=== PATIENT | male | born 1995 | race Caucasian/White ===

== ENCOUNTER → 2022-07-10 10:38 | Outpatient (BNVA) | payer OTHER, SELFPAY | PROVIDERS: Visit Provider Internal Medicine | DX: G89.29 Other chronic pain (principal); M54.50 Low back pain, unspecified | CPT/HCPCS: 72110; 99203 ==

== ENCOUNTER → 2022-07-24 13:16 | Outpatient (BNVA) | payer OTHER, SELFPAY | PROVIDERS: Visit Provider Physician Assistant Medical | DX: M54.59 Other low back pain (principal) | CPT/HCPCS: 99213 ==

== ENCOUNTER → 2024-07-23 15:36 | Outpatient (BNVA) | payer OTHER, SELFPAY | PROVIDERS: Visit Provider Physician Assistant Medical | DX: S39.012A Strain of muscle, fascia and tendon of lower back, initial encounter (principal); X50.0XXA Overexertion from strenuous movement or load, initial encounter | CPT/HCPCS: 99203 ==